=== PATIENT | female | born 1960 | race Caucasian/White ===

== ENCOUNTER 2018-03-14 16:48 | Emergency (ER) | END 2018-03-14 19:08 | disposition home or self-care (01) ==

== ENCOUNTER 2018-11-29 16:18 | Emergency (ER) | payer SELFPAY ==
[~2018-11-29] VITALS: Ht 165.1 cm; Wt 80.2 kg
[~2018-11-29 16:18] MED LIST: ALBU8.5H8 INH; ASPI-903 PO; CLONIPIN; GABA300C16 PO; IPRA4AER INHALATION; METR500T PO; OMEP40CA6 PO; PRED-248 PO; [UNRECOGNIZED DRUG - OTHER]
[2018-11-29 16:20] VITALS: BP 148/64; PULSE 111; RESP 22; Ht 165.1 cm; Wt 80.2 kg
== END 2018-11-29 18:40 | disposition left against medical advice (07) ==
LOC: E/R 16:18
DX: Z53.21 Procedure and treatment not carried out due to patient leaving prior to being seen by health care provider (principal)